=== PATIENT | female | born 1985 | race American Indian/Alaskan Native ===

== ENCOUNTER 2018-02-04 07:16 | Emergency (ER) | payer MEDICAID ==
[2018-02-04 07:52] LABS: Basophils % (Auto) 0.5 % (0.0-1.8); Eosinophils # (Auto) 0.4 K/mm3 (0.0-0.4); Eosinophils % (Auto) 5.6 % (0.0-4.3); Hemoglobin 8.7 gm/dl (10.1-14.3); Mean Corpuscular HGB Conc 29 % (30-34); Mean Corpuscular Hemoglobin 18 pg (28-32); Mean Corpuscular Volume 60 fl (79-97); Monocytes # (Auto) 0.6 K/mm3 (0.0-0.8); Monocytes % (Auto) 9.6 % (0.0-7.3); Platelet Count 489 K/mm3 (140-440); Red Blood Count 4.99 M/mm3 (3.65-5.03); Red Cell Distribution Width 19.9 % (13.2-15.2)
[2018-02-04 08:02] LABS: Alanine Aminotransferase 6 units/L (7-56); Albumin 4.5 g/dL (3.9-5); BUN/Creatinine Ratio 14; Blood Urea Nitrogen 7 mg/dL (7-17); Hemolysis Index 0; Lipase 26 units/L (13-60)
[2018-02-04 08:09] LABS: Bilirubin,Urine NEG (Negative); Blood,Urine NEG (Negative); Color,Urine Yellow (Yellow); Mucus,Urine FEW /HPF; Protein,Urine <15 mg/dL mg/dL (Negative); Urobilinogen,Urine < 2.0 mg/dL (<2.0)
[2018-02-04] MEDS ORDERED: CATAPRES PO ONE (09:31)
--- NOTE | 2018-02-04 09:42 | Emergency Department Report ---
ED Abdominal Pain HPI - General Chief Complaint: Abdominal Pain Stated Complaint: ABD. PAIN Time Seen by Provider: 02/04/18 09:31 Source: patient Mode of arrival: Ambulatory Limitations: No Limitations - History of Present Illness Initial Comments: 32-year-old female history of prior fibroids, no PCP, months of left lower quadrant pain," just moved back from [place]" no pcp, no vag dc no vag bleed, no m issed periods, here eval chronic llq pain, no n/v/d no fever, no vag c/o, no d/c Complaint: abdominal pain -: Gradual, week(s), month(s) Location: diffuse Quality: cramping Consistency: intermittent Associated Symptoms: denies other symptoms. denies: nausea, vomiting, diarrhea , chills, constipation, dysuria, hematemesis, hematochezia, melena, hematuria, anorexia, syncope - Related Data Previous Rx's Medication Instructions Recorded Last Taken Type Ibuprofen [Motrin] 400 mg PO Q8H PRN #30 tablet 02/04/18 Unknown Rx Allergies Allergy/AdvReac Type Severity Reaction Status Date / Time No Known Allergies Allergy Unverified 02/04/18 07:24 ED Review of Systems ROS: Stated complaint: ABD. PAIN Other details as noted in HPI Comment: All other systems reviewed and negative Constitutional: denies: diaphoresis, fever, malaise ENT: denies: dental pain, hearing loss, epistaxis Respiratory: denies: shortness of breath, SOB with exertion, SOB at rest, stridor Cardiovascular: denies: chest pain, palpitations, dyspnea on exertion, orthopnea , edema, syncope, paroxysmal nocturnal dyspnea Endocrine: denies: excessive sweating Gastrointestinal: abdominal pain. denies: nausea, vomiting, diarrhea, constipation, hematemesis, melena, hematochezia Neurological: denies: headache, weakness, numbness, paresthesias, confusion, abnormal gait ED Past Medical Hx - Past Medical History Previous Medical History?: Yes Hx Hypertension: Yes (NO MEDS) Additional medical history: UTERINE FIBROIDS - Surgical History Past Surgical History?: Yes Hx Appendectomy: Yes Additional Surgical History: TUBALIGATION , EXP LAP - Social History Smoking Status: Never Smoker Substance Use Type: Alcohol - Medications Home Medications: Home Medications Medication Instructions Recorded Confirmed Last Taken Type Ibuprofen [Motrin] 400 mg PO Q8H PRN #30 tablet 02/04/18 Unknown Rx ED Physical Exam - General Limitations: No Limitations General appearance: alert, in no apparent distress, anxious - Head Head exam: Present: atraumatic, normocephalic - Eye Eye exam: Present: PERRL, EOMI - ENT ENT exam: Present: normal exam, normal orophraynx - Neck Neck exam: Present: normal inspection. Absent: tenderness, meningismus - Respiratory Respiratory exam: Present: normal lung sounds bilaterally. Absent: respiratory distress, wheezes, rales, rhonchi, stridor - Cardiovascular Cardiovascular Exam: Present: regular rate, normal rhythm - GI/Abdominal GI/Abdominal exam: Present: soft, tenderness, mass. Absent: distended, guarding , rebound, rigid, pulsatile mass - Extremities Exam Extremities exam: Present: normal inspection, full ROM. Absent: tenderness, normal capillary refill, pedal edema, joint swelling - Back Exam Back exam: Present: normal inspection. Absent: CVA tenderness (L), muscle spasm , paraspinal tenderness, vertebral tenderness - Neurological Exam Neurological exam: Present: alert, oriented X3, CN II-XII intact. Absent: motor sensory deficit ED Course Vital Signs 02/04/18 02/04/18 02/04/18 07:24 10:00 10:23 Temperature 98.6 F Pulse Rate 67 61 Respiratory 18 18 Rate Blood Pressure 180/118 164/109 Blood Pressure 164/104 [Left] O2 Sat by Pulse 100 99 Oximetry 02/04/18 11:00 Temperature Pulse Rate 65 Respiratory 16 Rate Blood Pressure Blood Pressure 174/117 [Left] O2 Sat by Pulse 99 Oximetry ED Medical Decision Making - Lab Data Result diagrams: 02/04/18 07:35 02/04/18 07:35 - Radiology Data Radiology results: report reviewed - Medical Decision Making us shows multiple fibroids and at this time laboratory studies are unremarkable stable for outpatient follow-up vital signs stable Critical care attestation.: If time is entered above; I have spent that time in minutes in the direct care of this critically ill patient, excluding procedure time. ED Disposition Clinical Impression: Uterine fibroid, Abdominal pain Disposition: DC-01 TO HOME OR SELFCARE Is pt being admited?: No Condition: Stable Instructions: Abdominal Pain (ED), Uterine Fibroids (ED) Additional Instructions: Return immediately if normal alarming symptoms see a doctor listed Prescriptions: Ibuprofen [Motrin] 400 mg PO Q8H PRN #30 tablet PRN Reason: Pain Referrals: JENNIFER SEGURA MD [Staff Physician] - 3-5 Days Time of Disposition: 14:01
[2018-02-04 11:28] LABS: HCG Qualitative,Urine Negative (Negative)
--- NOTE | 2018-02-04 12:38 | Ultrasound Report ---
ULTRASOUND PELVIS COMPLETE - TRANSABDOMINAL AND TRANSVAGINAL: INDICATION: Fibroids. COMPARISON: None similar at this institution. FINDINGS: Transabdominal and transvaginal pelvic sonography performed in this patient with LMP of 01/22/2018 demonstrates a 8.7 x 4.7 x 9 cm anteverted uterus with multiple fibroids, few dominant ones as follows: 1. An approximately 4.8 x 4.2 cm lower uterine fibroid suspected, endovaginal image 10 with an approximately 2.4 x 1.8 cm adjacent fibroid to the left, image 8. 2. An approximately 4.4 cm uterine body fibroid to the right, endovaginal image 23. 3. An approximately 2.1 cm fibroid toward the uterine fundus, endovaginal image 24. Bilaminar endometrial stripe thickness 1.3 cm, endovaginal image 16. Minimal cervical canal fluid. Minimal pelvic free fluid. Right ovary is 3.8 x 2 x 2.4 cm with a 2 cm cyst. Unremarkable 3 x 1.8 x 2.5 cm left ovary. CONCLUSION: No acute pelvic sonographic abnormality with multiple fibroids noted, as described. Thank you for the opportunity to participate in this patient's care.
[2018-02-04 14:18] VITALS: BP 140/92
== END 2018-02-04 14:29 | disposition home or self-care (01) ==
LOC: ED 07:16
DX: D25.9 Leiomyoma of uterus, unspecified (principal); I10 Essential (primary) hypertension
CPT/HCPCS: 36415; 76830; 76856; 80053; 81001; 81025; 83690; 85025; 99284